=== PATIENT | female | born 1990 | race Caucasian/White ===

== ENCOUNTER 2017-07-08 15:22 | Emergency (ER) | payer OTHER ==
[~2017-07-08] VITALS: Ht 157.5 cm; Wt 59.1 kg
[2017-07-08 15:24] VITALS: BP 130/85; PULSE 77; TEMP 98.1
== END 2017-07-08 16:00 | disposition home or self-care (01) ==
LOC: COL.ER 15:22
DX: M25.561 Pain in right knee (principal)